=== PATIENT | female | born 2000 | race African-American/Black ===

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

== ENCOUNTER 2019-07-05 10:31 | Emergency (ER) | payer OTHER, SELFPAY | END 2019-07-05 10:56 | disposition home or self-care (01) | LOC: MADERS 10:31 | DX: J06.9 Acute upper respiratory infection, unspecified (principal) | CPT/HCPCS: 99281 ==

== ENCOUNTER 2020-11-23 23:09 | Emergency (ER) | payer BC ==
--- NOTE | 2020-11-23 23:49 | RAD ---
RIGHT WRIST 3 VIEWS: HISTORY: Right wrist pain, injury FINDINGS: No acute fracture or dislocation is identified. If symptoms do not improve, a follow-up exam should be obtained in 7-10 days.
== END 2020-11-24 | disposition home or self-care (01) ==
LOC: MADERS 23:09
DX: S63.501A Unspecified sprain of right wrist, initial encounter (principal); K58.9 Irritable bowel syndrome, unspecified; Z79.899 Other long term (current) drug therapy; W22.8XXA Striking against or struck by other objects, initial encounter

== ENCOUNTER 2021-11-05 23:14 | Emergency (ER) | payer BC ==
[2021-11-05] MEDS ORDERED: Iopamidol 370 76% 100 ML VIAL FS ONE (23:15)
[2021-11-06] LABS: Bilirubin Negative (Negative); Blood, Urine Negative (Negative); Clarity Clear (Clear); Glucose, Urine (Dipstick) Negative (Negative); Ketone, Urine > or equal to 80 mg/dL (Negative); Leukocyte Negative (Negative); Nitrite Negative (Negative); Protein, Urine (Dipstick) Negative (Neg-Trace); Specific Gravity, Urine 1.025 (1.005-1.030); Urobilinogen 0.2 mg/dL (Less than 2); pH, Urine 6.5 (5.0-9.0)
[2021-11-06 00:15] LABS: BHCG - Serum Negative (NEGATIVE); Pregs Control Background? CLEAR/WHITE (CLR/WHITE); Pregs Control Bar Appear? YES (CONTROL BAR)
[2021-11-06] MEDS ORDERED: Prochlorperazine 10 MG/2 ML VIAL ONE (00:16)
[2021-11-06] MEDS ORDERED: Sodium Chloride 0.9% 1,000 ML ONE (00:16)
[2021-11-06 00:25] LABS: ALT (SGPT) 11 U/L (8-55); AST (SGOT) 19 U/L (5-34); Albumin 4.7 g/dL (3.5-5.0); Alkaline Phosphatase 54 U/L (40-110); Anion Gap 15 mmol/L (10-20); BUN (Urea Nitrogen) 10 mg/dL (7.0-18.7); Bilirubin, Total 1.2 mg/dL (0.2-1.2); Calc. Creatinine Clearance 0 mL/min (70-130); Calcium 10.2 mg/dL (7.8-10.44); Carbon Dioxide 20 mmol/L (22-29); Chloride 106 mmol/L (98-107); Globulin 4.2 g/dL (2.4-3.5); Glucose 96 mg/dL (70-105); Lipase 10 U/L (8-78); Magnesium 2.2 mg/dL (1.6-2.6); Potassium 3.4 mmol/L (3.5-5.1); Protein, Total 8.9 g/dL (6.0-8.3); Sodium 138 mmol/L (136-145)
[2021-11-06 00:33] LABS: #Basophils 0.1 thou/uL (0.0-0.2); #Lymphocytes 0.5 thou/uL (1.20-3.40); #Monocytes 0.4 thou/uL (0.11-0.59); #Neutrophils 4.5 thou/uL (1.40-6.50); %Basophils 1.3 % (0.0-1.0); %Eosinophils 0.3 % (0.0-10.0); %Lymphocytes 9.2 % (21.0-51.0); %Monocytes 7.3 % (0.0-10.0); %Neutrophils 81.8 % (42.0-75.0); Hemoglobin 11.2 g/dL (12.0-16.0); MDiff Complete? YES; Mean Corpuscular HGB CONC 30.3 g/dL (32.0-36.0); Mean Corpuscular Hemoglobin 23.9 pg (27.0-31.0); Mean Platelet Volume 5.5 fL (7.4-10.4); Ovalocytes SLIGHT = 2-5 cells (100X) (0-1/hpf); Platelet Count 364 thou/uL (130-400); Platelet Morphology Comment Appears Adequate; RBC Distribution Width 14.6 % (11.5-14.5); Red Blood Cell (RBC) Count 4.69 mill/uL (4.20-5.40); White Blood Cell (WBC) Count 5.4 thou/uL (4.8-10.8)
[2021-11-06] MEDS ORDERED: NS 0.9% w/ 40 MEQ KCL 1,000 ML IV ONE (00:45)
[2021-11-06 00:48] LABS: SARS-CoV-2 NAA Rapid Test DETECTED (NotDetected)
[2021-11-06] MEDS ORDERED: Acetaminophen 325 MG TAB ONE (05:13)
[2021-11-06 08:52] LABS: Hemoglobin 9.6 g/dL (12.0-16.0); Mean Corpuscular HGB CONC 30.3 g/dL (32.0-36.0); Mean Corpuscular Hemoglobin 24.1 pg (27.0-31.0); Mean Corpuscular Volume 79.5 fL (78.0-98.0); Mean Platelet Volume 5.8 fL (7.4-10.4); Platelet Count 299 thou/uL (130-400)
[2021-11-06 10:01] LABS: Band 3 % (5-11); Eosinophils 1 % (0-10); Lymphocytes 13 % (21-51); MDiff Complete? YES; Monocytes 13 % (0-10); Neutrophil 70 % (42-75); Platelet Morphology Comment Appears Adequate; RBC Morphology Normal
== END 2021-11-06 11:45 | disposition home or self-care (01) ==
LOC: MADERS 23:14
DX: U07.1 COVID-19 (principal); E87.6 Hypokalemia; E86.0 Dehydration; K56.1 Intussusception
CPT/HCPCS: 0240U; 74177; 80053; 81003; 83605; 83690; 83735; 84703; 85025; 96365; 96366; 96375; J0780; J3480; J7050; Q9967

== ENCOUNTER 2022-01-14 13:48 | Emergency (ER) | payer BC ==
[2022-01-14] MEDS ORDERED: Ondansetron ODT 4 MG TAB ONE (14:33)
== END 2022-01-14 15:25 | disposition home or self-care (01) ==
LOC: MADERS 13:48
DX: R11.2 Nausea with vomiting, unspecified (principal)
CPT/HCPCS: 36416; 87804; 99284; Q0162

== ENCOUNTER 2022-06-30 17:06 | Emergency (ER) | payer BC ==
[2022-06-30 18:40] LABS: ALT (SGPT) 17 U/L (8-55); AST (SGOT) 15 U/L (5-34); Albumin 4.2 g/dL (3.5-5.0); Alkaline Phosphatase 49 U/L (40-110); Anion Gap 12 mmol/L (10-20); BUN (Urea Nitrogen) 13 mg/dL (7.0-18.7); Calc. Creatinine Clearance 0 mL/min (70-130); Calcium 9.3 mg/dL (7.8-10.44); Carbon Dioxide 23 mmol/L (22-29); Chloride 105 mmol/L (98-107); Estimated GFR 119; Globulin 3.7 g/dL (2.4-3.5); Glucose 90 mg/dL (70-105); Lipase 12 U/L (8-78); Potassium 3.4 mmol/L (3.5-5.1); Protein, Total 7.9 g/dL (6.0-8.3); Sodium 137 mmol/L (136-145)
[2022-06-30 18:42] LABS: #Basophils 0.1 thou/uL (0.0-0.2); #Lymphocytes 1.1 thou/uL (1.20-3.40); #Monocytes 0.7 thou/uL (0.11-0.59); #Neutrophils 6.4 thou/uL (1.40-6.50); %Basophils 1.2 % (0.0-1.0); %Lymphocytes 13.6 % (21.0-51.0); %Neutrophils 77.1 % (42.0-75.0); Hemoglobin 10.9 g/dL (12.0-16.0); Mean Corpuscular HGB CONC 30.3 g/dL (32.0-36.0); Mean Corpuscular Hemoglobin 24.6 pg (27.0-31.0); Mean Corpuscular Volume 81.4 fL (78.0-98.0); Mean Platelet Volume 7.1 fL (7.4-10.4); Platelet Count 313 thou/uL (130-400); Polychromasia SLIGHT = 2-3 cells (100X) (0-2/hpf); RBC Distribution Width 17.2 % (11.5-14.5); Red Blood Cell (RBC) Count 4.42 mill/uL (4.20-5.40); White Blood Cell (WBC) Count 8.3 thou/uL (4.8-10.8)
[2022-06-30] MEDS ORDERED: Potassium Chloride 20 MEQ TAB ONE (18:58)
[2022-06-30] MEDS ORDERED: Lactated Ringer's 1,000 ML ONE (18:58)
[2022-06-30 20:25] LABS: Bilirubin Negative (Negative); Blood, Urine Large (Negative); Clarity Cloudy (Clear); Glucose, Urine (Dipstick) Negative (Negative); Ketone, Urine 40 mg/dL (Negative); Leukocyte Negative (Negative); Nitrite Negative (Negative); Protein, Urine (Dipstick) 30 mg/dL (Neg-Trace); Specific Gravity, Urine 1.025 (1.005-1.030); Urobilinogen 0.2 mg/dL (Less than 2)
[2022-06-30 20:29] LABS: Pregnancy Test - Urine (BHCG) Negative (Negative); Pregu Control Background? CLEAR/WHITE (CLR/WHITE); Pregu Control Bar Appear? YES (CONTROL BAR); Specific Gravity 1.029 (1.002-1.036)
[2022-06-30 20:33] LABS: Bacteria/HPF None Seen HPF (None Seen); Mucous/LPF 1+ LPF (<2+); RBC/HPF Greater than 50 HPF (0-3); Squamous Epithelial 0-3 HPF (0-3); Transitional Epithelial 0-3 HPF (None Seen); WBC/HPF 0-3 HPF (0-3)
== END 2022-06-30 21:44 | disposition home or self-care (01) ==
LOC: MADERS 17:06
DX: R11.2 Nausea with vomiting, unspecified (principal); D64.9 Anemia, unspecified; E86.0 Dehydration; E87.6 Hypokalemia; Z79.899 Other long term (current) drug therapy
CPT/HCPCS: 36415; 80053; 81003; 81015; 81025; 83690; 85025; 96360; 96361; J7120

== ENCOUNTER 2023-01-14 16:19 | Emergency (ER) | payer OTHER, SELFPAY | END 2023-01-14 17:38 | disposition home or self-care (01) | LOC: MADERS 16:19 | DX: S00.83XA Contusion of other part of head, initial encounter (principal); V89.2XXA Person injured in unspecified motor-vehicle accident, traffic, initial encounter; Y92.410 Unspecified street and highway as the place of occurrence of the external cause | CPT/HCPCS: 99283 ==

== ENCOUNTER 2023-07-03 14:22 | Emergency (ER) | payer SELFPAY ==
[2023-07-03 16:58] LABS: Bilirubin Negative (Negative); Blood, Urine Trace (Negative); Glucose, Urine (Dipstick) Negative (Negative); Ketone, Urine > or equal to 80 mg/dL (Negative); Leukocyte Negative (Negative); Nitrite Negative (Negative); Protein, Urine (Dipstick) 30 mg/dL (Neg-Trace); Urobilinogen 0.2 mg/dL (Less than 2)
[2023-07-03 17:00] LABS: Pregnancy Test - Urine (BHCG) Negative (Negative); Pregu Control Background? CLEAR/WHITE (CLR/WHITE); Pregu Control Bar Appear? YES (CONTROL BAR)
[2023-07-03 17:01] LABS: Clarity Hazy (Clear); pH, Urine Greater/Equal 9.0 (5.0-9.0)
[2023-07-03 17:06] LABS: Bacteria/HPF Rare-Few HPF (None Seen); CAUTI Indications for Culture Fever or rigors; RBC/HPF 0-3 HPF (0-3); WBC/HPF 0-3 HPF (0-3)
[2023-07-03 17:07] LABS: Mucous/LPF 1+ LPF (<2+); Urine Culture Reflex No No
[2023-07-03 17:52] LABS: Bicarbonate (HCO3v) 20.6 mmol/L (22.0-28.0); Calcium, Ionized 1.13 mmol/L (1.15-1.33); Chloride 113 mmol/L (98-107); Hemoglobin - Calc 15.7 g/dL (12.0-16.0); Potassium 3.2 mmol/L (3.5-5.1); Sodium 144 mmol/L (138-145); T. Carbon Dioxide 21.3 mmol/L (22.0-28.0); vO2 Saturation-calc 92.7 % (60.0-85.0)
[2023-07-03 18:00] LABS: ALT (SGPT) 18 U/L (8-55); AST (SGOT) 24 U/L (5-34); Albumin 4.4 g/dL (3.5-5.0); Alkaline Phosphatase 44 U/L (40-110); Anion Gap 18 mmol/L (10-20); BUN (Urea Nitrogen) 10 mg/dL (7.0-18.7); Bilirubin, Total 2.1 mg/dL (0.2-1.2); Calc. Creatinine Clearance 0 mL/min (70-130); Calcium 10.1 mg/dL (7.8-10.44); Carbon Dioxide 17 mmol/L (22-29); Chloride 109 mmol/L (98-107); Estimated GFR 102; Globulin 3.5 g/dL (2.4-3.5); Glucose 124 mg/dL (70-105); Magnesium 1.6 mg/dL (1.6-2.6); Potassium 3.1 mmol/L (3.5-5.1); Protein, Total 7.9 g/dL (6.0-8.3); Sodium 141 mmol/L (136-145)
[2023-07-03 18:07] LABS: Band 2 % (5-11); Hematocrit 41.3 % (36.0-47.0); Hemoglobin 13.5 g/dL (12.0-16.0); Lymphocytes 1 % (21-51); MDiff Complete? YES; Mean Corpuscular HGB CONC 32.6 g/dL (32.0-36.0); Mean Corpuscular Hemoglobin 29.5 pg (27.0-31.0); Mean Corpuscular Volume 90.5 fl (78.0-98.0); Mean Platelet Volume 7.5 fL (7.4-10.4); Monocytes 8 % (0-10); Neutrophil 89 % (42-75); Platelet Adequacy Comment Appears Adequate; Platelet Count 240 10x3/uL (130-400); Red Blood Cell (RBC) Count 4.56 mill/uL (4.20-5.40); White Blood Cell (WBC) Count 10.3 10x3/uL (4.8-10.8)
[2023-07-03 18:13] LABS: Amphetamine Not Detected (NotDetected); Benzodiazepine Screen Not Detected (NotDetected); Cocaine Metabolite Screen Not Detected (NotDetected); Methadone Not Detected (NotDetected); Methamphetamine Not Detected (NotDetected); Opiate Screen Not Detected (NotDetected); Phencyclidine (PCP) Not Detected (NotDetected); THC/Cannabinoid Screen Detected (NotDetected); Tricyclic Screen Not Detected (NotDetected)
[2023-07-03 18:14] LABS: Barbiturates Screen Not Detected (NotDetected); Oxycodone Screen Not Detected (NotDetected)
[2023-07-03 18:24] LABS: SARS-CoV-2 NAA Rapid Test Not Detected (NotDetected)
[2023-07-03] MEDS ORDERED: Magnesium 2 GM/50 ML BAG (IN WATER) ONE (18:43)
[2023-07-03] MEDS ORDERED: Sodium Chloride 0.9% 2,000 ML ONE (18:43)
[2023-07-03] MEDS ORDERED: Potassium Chloride 20 MEQ TAB ONE (18:43)
[2023-07-03] MEDS ORDERED: Ondansetron PF 4 MG/2 ML Vial ONE ×2 (19:29→20:22)
== END 2023-07-03 20:29 | disposition home or self-care (01) ==
LOC: MADERS 14:22
DX: E86.0 Dehydration (principal); F45.8 Other somatoform disorders; E87.6 Hypokalemia; Z20.822 Contact with and (suspected) exposure to COVID-19
CPT/HCPCS: 80053; 80306; 81001; 81025; 82330; 82803; 83735; 85025; 87804; 96361; 96365; 96375; 96376; J2405; J3475; J7050; U0002

== ENCOUNTER 2023-11-08 11:15 | Emergency (ER) | payer OTHER, SELFPAY ==
[2023-11-08] MEDS ORDERED: Acetaminophen 500 MG TAB ONE (12:24)
[2023-11-08 12:42] LABS: Bilirubin Negative (Negative); Blood, Urine Trace (Negative); Clarity Clear (Clear); Glucose, Urine (Dipstick) Negative (Negative); Ketone, Urine 15 mg/dL (Negative); Leukocyte Trace (Negative); Nitrite Negative (Negative); Pregnancy Test - Urine (BHCG) Negative (Negative); Protein, Urine (Dipstick) 30 mg/dL (Neg-Trace); Urobilinogen 0.2 mg/dL (Less than 2); pH, Urine 6.5 (5.0-9.0)
[2023-11-08 12:43] LABS: Pregu Control Background? CLEAR/WHITE (CLR/WHITE); Pregu Control Bar Appear? YES (CONTROL BAR); Specific Gravity 1.026 (1.002-1.036)
[2023-11-08] MEDS ORDERED: Ondansetron ODT 4 MG TAB ONE (12:45)
[2023-11-08 12:55] LABS: CAUTI Indications for Culture Fever or rigors
[2023-11-08 12:57] LABS: Bacteria/HPF Rare-Few HPF (None Seen)
[2023-11-08 12:58] LABS: Urine Culture Reflex No No
[2023-11-08] MEDS ORDERED: Ibuprofen 800 MG TAB ONE (13:29)
[2023-11-08 13:47] LABS: SARS-CoV-2 NAA Rapid Test Not Detected (NotDetected)
== END 2023-11-08 14:09 | disposition home or self-care (01) ==
LOC: MADERS 11:15
DX: R05.9 Cough, unspecified (principal); R50.9 Fever, unspecified; R09.89 Other specified symptoms and signs involving the circulatory and respiratory systems; R11.0 Nausea
CPT/HCPCS: 71045; 81001; 81025; 87086; 87804; Q0162; U0002

== ENCOUNTER 2025-07-11 12:33 | Emergency (ER) | payer OTHER ==
[2025-07-11] MEDS ORDERED: Ondansetron PF 4 MG/2 ML Vial ONE (13:38)
[2025-07-11 13:50] LABS: Hematocrit 43.4 % (36.0-47.0); Hemoglobin 13.7 g/dL (12.0-16.0); Mean Corpuscular Hemoglobin 28.5 pg (27.0-31.0); Mean Corpuscular Volume 90.2 fl (78.0-98.0); Platelet Count 315 10x3/uL (130-400); Red Blood Cell (RBC) Count 4.81 mill/uL (4.20-5.40); White Blood Cell (WBC) Count 11.8 10x3/uL (4.8-10.8)
[2025-07-11 13:58] LABS: ALT (SGPT) 15 U/L (Less than 34); AST (SGOT) 28 U/L (11-34); Albumin 4.9 g/dL (3.1-4.5); Alkaline Phosphatase 45 U/L (40-110); Anion Gap 19 mmol/L (10-20); BUN (Urea Nitrogen) 17 mg/dL (7.0-18.7); Bilirubin, Total 2.0 mg/dL (0.3-1.2); Calc. Creatinine Clearance 0 mL/min (70-130); Calcium 10.0 mg/dL (7.8-10.44); Carbon Dioxide 18 mmol/L (22-29); Chloride 110 mmol/L (98-107); Globulin 3.8 g/dL (2.4-3.5); Glucose 121 mg/dL (70-105); Lipase 7 U/L (8-78); Potassium 3.7 mmol/L (3.5-5.1); Sodium 143 mmol/L (136-145)
[2025-07-11 14:00] LABS: MDiff Complete? YES; Manual Diff?? YES
[2025-07-11 14:01] LABS: Platelet Adequacy Comment Appears Adequate
[2025-07-11 15:07] LABS: Glucose, Urine (Dipstick) Negative (Negative); Leukocyte Trace (Negative); Protein, Urine (Dipstick) 100 mg/dL (Neg-Trace); Specific Gravity, Urine 1.015 (1.005-1.030)
[2025-07-11 15:16] LABS: Bacteria/HPF Rare-Few HPF (None Seen); CAUTI Indications for Culture Dysuria,urgency,freq; RBC/HPF Greater than 50 HPF (0-3); Urine Culture Reflex No No
== END 2025-07-11 15:55 | disposition home or self-care (01) ==
LOC: MADERS 12:33
DX: R11.2 Nausea with vomiting, unspecified (principal); K50.90 Crohn's disease, unspecified, without complications
CPT/HCPCS: 80053; 81001; 83690; 85025; 96361; 96374; 96375; J1630; J2405; J7030

== ENCOUNTER 2025-11-02 10:23 | Emergency (ER) | payer OTHER | END 2025-11-02 11:40 | disposition home or self-care (01) | LOC: MADERS 10:23 | DX: B34.9 Viral infection, unspecified (principal) | CPT/HCPCS: 99283 ==